=== PATIENT | female | born 1985 | race African-American/Black ===

== ENCOUNTER 2019-06-23 17:46 | Emergency (ER) | payer MEDICAID ==
[~2019-06-23] VITALS: Ht 154.9 cm; Wt 81.6 kg
--- NOTE | 2019-06-23 18:12 | NUR ---
patient was seen by . Awaiting xray results..
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
== END 2019-06-23 19:00 | disposition home or self-care (01) ==
LOC: ER 17:49
DX: S82.832A Other fracture of upper and lower end of left fibula, initial encounter for closed fracture (principal); X50.1XXA Overexertion from prolonged static or awkward postures, initial encounter; Y93.89 Activity, other specified; Y92.89 Other specified places as the place of occurrence of the external cause; Y99.8 Other external cause status
CPT/HCPCS: 73610; A4663

== ENCOUNTER → 2022-12-26 | Emergency (ER) | payer MEDICAID, OTHER ==
[~2022-12-26] VITALS: Ht 154.9 cm; Wt 80.7 kg
[~2022-12-26] MED LIST: HYDR-3980 PO; HYDR-4209 PO; HYDROCODONE/APAP 5-325MG TABLET ONE; HYDROCODONE/APAP 5-325MG TABLET PO ONE; NEOMY/BACITRA/POLYMYXIN B OINT UD PACKET TP ONE
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
[2022-12-26 15:13] VITALS: BP 129/90
== END | disposition home or self-care (01) ==
LOC: ER 14:45
DX: T20.10XA Burn of first degree of head, face, and neck, unspecified site, initial encounter (principal); T23.101A Burn of first degree of right hand, unspecified site, initial encounter; X08.8XXA Exposure to other specified smoke, fire and flames, initial encounter; Y93.89 Activity, other specified; Y92.89 Other specified places as the place of occurrence of the external cause; Y99.8 Other external cause status
CPT/HCPCS: A4663